=== PATIENT | female | born 1995 | race Caucasian/White ===

== ENCOUNTER 2016-05-09 16:42 | Emergency (ER) | payer OTHER ==
[2016-05-09 17:49] VITALS: BP 123/70
--- NOTE | 2016-05-09 19:15 | UC ---
Respiratory Complaint HPI - HPI Summary HPI Summary: had flu and bronchitis and pneumonia during winter break as intermittent episodes of cough, no fevers, chills, nausea or vomiting, no sputum has not tried her proventil inhaler - History of Current Complaint Chief Complaint: UCRespiratory Stated Complaint: COUGH Time Seen by Provider: 05/09/16 19:13 Hx Obtained From: Patient Hx Last Menstrual Period: MID April, ?: No Onset/Duration: Gradual Onset, Still Present Timing: Intermittent Episodes Severity Initially: Mild Severity Currently: Mild Character: Cough: Nonproductive Aggravating Factors: Nothing Alleviating Factors: Nothing Associated Signs And Symptoms: Positive: URI, Nasal Congestion - Allergies/Home Medications Allergies/Adverse Reactions: Allergies Allergy/AdvReac Type Severity Reaction Status Date / Time Sulfa Antibiotics Allergy Rash Verified 05/09/16 17:49 Home Medications: Home Medications Mometasone 110 MCG MDI * [Asmanex 110 MCG MDI *] 2 puff INH BID 05/09/16 [ History Confirmed 05/09/16] PMH/Surg Hx/FS Hx/Imm Hx Previously Healthy: No Endocrine History Of: Reports: Thyroid Disease Cardiovascular History Of: Denies: Cardiac Disorders Respiratory History Of: Reports: Asthma - Surgical History Surgical History: Yes Surgery Procedure, Year, and Place: T&A - Family History Known Family History: Positive: Hypertension - mother Negative: Diabetes - Social History Occupation: Student Lives: With Family Alcohol Use: None Substance Use Type: None Smoking Status (MU): Never Smoked Tobacco Review of Systems Constitutional: Negative Skin: Negative Eyes: Negative ENT: Negative Respiratory: Cough Cardiovascular: Negative Gastrointestinal: Negative Genitourinary: Negative Motor: Negative Neurovascular: Negative Musculoskeletal: Negative Neurological: Negative Psychological: Negative All Other Systems Reviewed And Are Negative: Yes Physical Exam Triage Information Reviewed: Yes Appearance: Well-Appearing, No Pain Distress, Well-Nourished Vital Signs: Initial Vital Signs Temp 98.5 F 05/09/16 17:43 Pulse 83 05/09/16 17:43 Resp 16 05/09/16 17:43 BP 123/70 05/09/16 17:43 Pulse Ox 100 05/09/16 17:43 Vital Signs Reviewed: Yes Eye Exam: Normal Eyes: Positive: Conjunctiva Clear ENT Exam: Normal ENT: Positive: Normal ENT inspection, Hearing grossly normal, Pharynx normal, TMs normal. Negative: Nasal congestion, Nasal drainage, Tonsillar swelling, Tonsillar exudate, Trismus, Muffled/hoarse voice Dental Exam: Normal Neck exam: Normal Neck: Positive: Supple, Nontender, No Lymphadenopathy Respiratory Exam: Normal Respiratory: Positive: Chest non-tender, Lungs clear, No respiratory distress, No accessory muscle use, Decreased breath sounds Cardiovascular Exam: Normal Cardiovascular: Positive: RRR, No Murmur, Pulses Normal, Brisk Capillary Refill Musculoskeletal Exam: Normal Musculoskeletal: Positive: Strength Intact, ROM Intact, No Edema Neurological Exam: Normal Neurological: Positive: Alert, Muscle Tone Normal Psychological Exam: Normal Skin Exam: Normal Diagnostic Evaluation - Laboratory O2 Sat by Pulse Oximetry: 100 Re-Evaluation - Re-Evaluation First Eval Change: Improved - increase airmovemnt and decrease chest discomfort after neb. Respiratory Course/Dx - Course Course Of Treatment: short course of prednisone, use albutrol MDI 4 times a day re-check prn here or at [facility] - Differential Dx/Diagnosis Differential Diagnosis/HQI/PQRI: Asthma, Bronchitis, Laryngitis, Lower Resp Infection, Sinusitis Provider Diagnoses: bronchitis with bronchospasm, viral illness Discharge - Discharge Plan Condition: Stable Disposition: HOME Prescriptions: predniSONE TAB* [Deltasone TAB*] 10 mg PO DAILY #16 tab Patient Education Materials: Albuterol (By breathing), Oxymetazoline (Into the nose), How to Use a Metered-Dose Inhaler (ED), Acute Bronchitis (ED), Viral Syndrome (ED), Bronchospasm (ED) Referrals: Non Staff,Doctor [Primary Care Provider] - Additional Instructions: Follow at [facility] or return as needed
[2016-05-09] MEDS ORDERED: predniSONE TAB* 20 MG PO ONE (19:20)
[2016-05-09] MEDS ORDERED: Albuterol/Ipratropium NEB.SOL* Albuterol 2.5 MG/Ipratropium 0.5 MG 3 ML INH ONE (19:20)
== END 2016-05-09 19:54 | disposition home or self-care (01) ==
LOC: UCCORT 16:42
DX: J20.9 Acute bronchitis, unspecified (principal); B34.9 Viral infection, unspecified; Z88.2 Allergy status to sulfonamides
CPT/HCPCS: 99212; A9270-GY; G0463; J7512

== ENCOUNTER 2016-05-11 07:53 | Emergency (ER) | payer OTHER ==
[2016-05-11 08:03] VITALS: BP 115/68
--- NOTE | 2016-05-11 08:17 | UC ---
Respiratory Complaint HPI - HPI Summary HPI Summary: was seen here , diagnosed with bronchitis. States concerned she has pneumonia. States still coughing alot, and L lung had a vibration. Was given medrol at last OV and not improved. [ End ] - History of Current Complaint Chief Complaint: UCRespiratory Stated Complaint: COUGH,CHEST CONGESTION Time Seen by Provider: 05/11/16 08:11 Hx Obtained From: Patient Hx Last Menstrual Period: 04/17/16 ?: No Onset/Duration: Gradual Onset Character: Cough: Productive Aggravating Factors: Nothing Alleviating Factors: Nothing Associated Signs And Symptoms: Positive: Wheezing, Nasal Congestion - Allergies/Home Medications Allergies/Adverse Reactions: Allergies Allergy/AdvReac Type Severity Reaction Status Date / Time Sulfa Antibiotics Allergy Rash Verified 05/11/16 07:57 Home Medications: Home Medications Mometasone/Formoter 100/5 MDI* [Dulera 100/5 MDI*] 2 puff INH BID 05/11/16 [ History Confirmed 05/11/16] PMH/Surg Hx/FS Hx/Imm Hx Previously Healthy: Yes Endocrine History Of: Reports: Thyroid Disease Cardiovascular History Of: Denies: Cardiac Disorders Respiratory History Of: Reports: Asthma, Pneumonia - 03/2016 Psychological History Of: Denies: Bipolar Disorder Cancer History Of: Denies: Lung Cancer - Surgical History Surgical History: Yes Surgery Procedure, Year, and Place: T&A - Family History Known Family History: Positive: Hypertension - mother Negative: Diabetes - Social History Occupation: Student Lives: Alone Alcohol Use: None Substance Use Type: None Smoking Status (MU): Never Smoked Tobacco - Immunization History Most Recent Influenza Vaccination: 2016 Review of Systems Constitutional: Fatigue Skin: Negative Eyes: Negative ENT: Negative Respiratory: Shortness Of Breath, Cough Cardiovascular: Negative Gastrointestinal: Negative Genitourinary: Negative Motor: Negative Neurovascular: Negative Musculoskeletal: Negative Neurological: Negative Psychological: Negative All Other Systems Reviewed And Are Negative: Yes Physical Exam Triage Information Reviewed: Yes Appearance: Well-Appearing, No Pain Distress, Well-Nourished Vital Signs: Initial Vital Signs Temp 98.6 F 05/11/16 07:59 Pulse 88 05/11/16 07:59 Resp 18 05/11/16 07:59 BP 115/68 05/11/16 07:59 Pulse Ox 98 05/11/16 07:59 Vital Signs Reviewed: Yes Eye Exam: Normal ENT Exam: Normal Dental Exam: Normal Neck exam: Normal Neck: Positive: 1 Respiratory Exam: Normal Cardiovascular Exam: Normal Musculoskeletal Exam: Normal Neurological Exam: Normal Psychological Exam: Normal Skin Exam: Normal UC Diagnostic Evaluation - Laboratory O2 Sat by Pulse Oximetry: 98 Respiratory Course/Dx - Course Course Of Treatment: Had (+) pneumonia 6 weeks ago. Recurrent Sx and failed the medol and proventil. Still with worsening cough per patient. Exam WNL. Cough bothering her at night. Given tessalon. If Sx persist or worsen then can start augmentin and aware of SE like diarrhea . RTO if any concerns pt aware and agreeable to plan - Differential Dx/Diagnosis Differential Diagnosis/HQI/PQRI: Bronchitis, Lower Resp Infection Provider Diagnoses: Bronchitis Discharge - Discharge Plan Condition: Good Disposition: HOME Prescriptions: Amoxicillin/Clavulanate TAB* [Augmentin TAB 875*] 875 mg PO BID #20 tab Benzonatate CAP* [Tessalon CAP*] 100 mg PO TID PRN #20 cap PRN Reason: Cough Patient Education Materials: Acute Bronchitis (ED) Referrals: Non Staff,Doctor [Primary Care Provider] - 3 Days (At School Physician ) Additional Instructions: As we discussed your chest xray shows no pneumonia. At this time we will advise you drink plenty of water. We have prescribed a cough suppressant and if your symptom worsen in the next 304 days then you may start Augmentin which we sent to the pharmacy as well. If you take this med p[lease take with a meal and probiotics to reduce the chance of Side effects
--- NOTE | 2016-05-11 08:57 | RAD ---
INDICATION: Cough. Pneumonia 1 month ago. Currently on antibiotics. COMPARISON: None. TECHNIQUE: Dual energy PA and routine lateral views of the chest were obtained. REPORT: Clear lungs and pleural spaces. Negative for pneumothorax. The heart, pulmonary vasculature, and mediastinal contours are unremarkable. Unremarkable osseous structures and soft tissue contours. IMPRESSION: No evidence for pneumonia. Negative exam.
== END 2016-05-11 08:58 | disposition home or self-care (01) ==
LOC: UCCORT 07:53
DX: J40 Bronchitis, not specified as acute or chronic (principal); Z88.2 Allergy status to sulfonamides
CPT/HCPCS: 71020; 81025; 99212; G0463